=== PATIENT | male | born 1945 | race Caucasian/White ===

== ENCOUNTER 2019-08-10 16:14 | Outpatient (CLI) | payer MEDICARE, SELFPAY | END 2019-08-10 16:15 | disposition home or self-care (01) | LOC: CHSLAB 16:25 | PROVIDERS: PCP Family Medicine; Visit Provider Specialist | DX: C44.321 Squamous cell carcinoma of skin of nose (principal) | CPT/HCPCS: 88305 ==

== ENCOUNTER 2021-08-09 13:08 | Outpatient (CLI) | payer MEDICARE, SELFPAY ==
--- NOTE | 2021-08-09 | ECG_ITS ---
Measurements Intervals [place] Rate: 76 P: 60 [place]: 155 QRS: 10 QRSD: 87 T: 55 QT: 349 QTc: 395 Interpretive Statements SINUS RHYTHM BASELINE ARTIFACT- III NORMAL ECG Electronically Signed On 08-09-2021 14:22:07 CDT by Tremayne Yip D.O.
--- NOTE | ~2021-08-09 | CT_ITS ---
EXAMINATION: CT LE RT wo con DATE: 08/09/2021 13:36 INDICATION: Right knee osteoarthritis presenting with pain and difficulty with weightbearing TECHNIQUE: High resolution computed tomography (CT) of the right lower leg from the hip through the r ight ankle was performed without intravenous contrast. Additional sagittal and coronal reconstruction s were performed. Automated exposure control and iterative reconstruction technique were employed.The dose-length product was 1743.66 mGy-cm. COMPARISON: 06/01/2021 FINDINGS: Bone alignment is normal. No fracture. Tricompartmental osteoarthritis at the right knee with severe joint space narrowing at the medial compartment with early remodeling along the medial aspect of the medial tibial plateau. There is more extensive subarticular eburnation and mild scattered cystlike ch anges along the medial tibial plateau and weightbearing medial femoral condyle. Less severe mild oste oarthritis in the lateral and patellofemoral compartment although severity of joint space narrowing c an be underestimated on nonweightbearing imaging. Large right knee joint effusion. Mild right hip mamadou nt effusion. Prostatomegaly measuring 5.4 x 3.5 cm. No pathologically enlarged right pelvic or inguin al lymphadenopathy. IMPRESSION: 1. Severe medial compartment predominant osteoarthritis at the right knee with large right knee joint effusion. Reviewed, dictated and finalized at location A.
[2021-08-09 14:21] LABS: Estimated Glomerular Filt Rate > 60
[2021-08-09 15:42] LABS: Glucose 99 mg/dL (65-110)
== END 2021-08-09 13:09 | disposition home or self-care (01) ==
PROVIDERS: PCP Family Medicine; Visit Provider Orthopaedic Surgery
DX: Z01.818 Encounter for other preprocedural examination (principal); M17.11 Unilateral primary osteoarthritis, right knee; I10 Essential (primary) hypertension; E78.5 Hyperlipidemia, unspecified
CPT/HCPCS: 36415; 73700; 82040; 82565; 82947; 93005

== ENCOUNTER 2021-08-14 09:31 | Outpatient (CLI) | payer MEDICARE, SELFPAY ==
[2021-08-14 09:59] LABS: Hemoglobin 11.5 g/dL (14.0-18.0)
[2021-08-14 10:09] LABS: Estimated Glomerular Filt Rate > 60; Glucose 117 mg/dL (65-110)
== END 2021-08-14 09:32 | disposition home or self-care (01) ==
PROVIDERS: PCP Family Medicine; Visit Provider Orthopaedic Surgery
DX: Z01.818 Encounter for other preprocedural examination (principal); I10 Essential (primary) hypertension; E78.5 Hyperlipidemia, unspecified; M17.11 Unilateral primary osteoarthritis, right knee
CPT/HCPCS: 36415; 82040; 82565; 82947; 85014; 85018

== ENCOUNTER 2021-11-08 11:57 | Outpatient (CLI) | payer MEDICARE, SELFPAY ==
[2021-11-08 13:24] LABS: Basophils Absolute Auto 0.1 K/mm3 (0.0-0.1); Basophils Percent Auto 0.6 % (0.2-1.2); Eosinophils Absolute Auto 0.2 K/mm3 (0-0.3); Eosinophils Percent Auto 1.8 % (0-4.4); Hematocrit 36.4 % (42.0-52.0); Hemoglobin 11.3 g/dL (14.0-18.0); Immature Granulocyte Absolute 0.03 K/mm3 (0.00-0.031); Immature Granulocyte Percent A 0.4 % (0-0.5); Lymphocytes Percent Auto 8.6 % (18.3-44.2); Mean Corpuscular Hemoglobin 27.6 pg (26-34); Mean Corpuscular Volume 88.8 fl (80-100); Mean Platelet Volume 8.5 fl (7.4-10.4); Monocytes Absolute Auto 0.9 K/mm3 (0.1-0.6); Monocytes Percent Auto 11.5 % (2.6-8.5); Neutrophils Absolute Auto 6.3 K/mm3 (1.3-6.7); Neutrophils Percent Auto 77.1 % (45.5-73.1); Platelet Count Result 364 k/mm3 (150-375); Red Cell Distribution Width 15.3 % (11.5-14.5); White Blood Count 8.2 K/mm3 (4.5-10.0)
[2021-11-08 13:35] LABS: Albumin Level 4.1 g/dL (3.5-5.1); Estimated Glomerular Filt Rate > 60; Glucose 97 mg/dL (65-110)
[2021-11-08 13:37] LABS: Hemoglobin A1C 5.1 % (<5.7)
[2021-11-08 13:40] LABS: Urine Cotinine NEGATIVE
== END 2021-11-08 11:58 | disposition home or self-care (01) ==
LOC: ANHSURGERY 12:02
PROVIDERS: PCP Family Medicine; Visit Provider Orthopaedic Surgery
DX: M17.11 Unilateral primary osteoarthritis, right knee (principal); Z01.818 Encounter for other preprocedural examination
CPT/HCPCS: 80307; 82040; 82565; 82947; 83036; 85025; 87081

== ENCOUNTER 2021-12-04 00:50 | Day surgery (SDC) | payer MEDICARE, SELFPAY ==
[2021-11-08 12:11] VITALS: BMI 22.1
--- NOTE | 2021-11-08 12:39 | PC.NURSE ---
Addendum entered by Yecenia Ray RN 11/08/21 13:04: CELECOXIB OK TO CONTINUE TO TAKE. DO NOT NEED TO HOLD. DO NOT TAKE MORNING OF SURGERY Addendum entered by Yecenia Ray RN 11/08/21 12:47: LAST DOSE CELECOXIB 11/26/21 Original Note: Report to the Outpatient Waiting Room, entrance under the green pavilion located off [address], at time _0630 on date ___12/04/21____. OR Time: . - You and your visitor will be asked to self-screen and do not enter if you have any COVID symptoms. - Only one visitor and NO children visitors are allowed at this time. - The patient visitor is requested to leave or wait in car when not with patient due to restrictions. - A mask is required within the hospital. Patients may have clear liquids (water, carbonated beverages, clear teas, apple juice) until 3 hours prior to surgery with a maximum of 20 ounces. - No food from midnight until time of surgery - Infants may have breast milk until 4 hours before surgery, formula 6 hours prior to surgery. - Children will be allowed to drink immediately following surgery. If applicable, please bring a bottle or sippy cup to assist with drinking. Juice, water, soda, and popsicles are readily available. For infants on formula, please bring formula the day of surgery. Pacifiers are allowed. Take the following medications with a SIP of water the morning of surgery: _LEVOTHYROXINE Medications to discontinue per physician ____CELECOXIB 7 DAYS PRE OP Date to take last dose Please no make-up, nail macedonian, hairspray, perfume, deodorant, or body powder the day of surgery. No jewelry (including any body piercings) or valuables the day of surgery, leave them at home. Please take a shower or bath the night before, or the morning of, surgery with an antibacterial soap. Wear comfortable, loose fitting clothing. Children are encouraged to wear pajamas. - Jewelry must be removed prior to entering the operating room. Rings and piercings that are not removed may be cut off. - The hospital will not accept responsibility for valuables. - Please leave all valuables, including medications, at home the day of surgery. If you are going home after surgery, a licensed cdl truck driver must drive you home. - NO public transportation without another adult. - We recommend that an adult stay with you for 24 hours following discharge. - We also recommend that you do not drive, make important decision, drink alcoholic beverages, or take any drugs that were not prescribed by your health care provider for at least 24 hours after your discharge time. For Pediatric surgeries, we recommend two adults accompany the child home (only one inside the building at this time). Follow any additional instructions given to you from your surgeon. If you or anyone in your household have experienced Covid symptoms in the past week, please notify your surgeon or the nurse liaison at the phone number below for possible testing. VERBALAND WRITTEN instructions given to _PATIENT AND SPOUSE BARB and asked if any additional questions and then verbalized understanding. Patient advised to call surgeon office or pre surgery nurse liaison [phone] if any additional questions.
[2021-11-08 12:55] VITALS: BP 116/85; PULSE 78; RESP 18; TEMP 37; O2SAT 100
--- NOTE | 2021-12-03 14:56 | P.PNAN_ITS ---
Anes - Initial Pre Proc Eval Procedure: Operation Date: 12/04/21 08:30 Proposed Procedures p Right Custom Total Knee Arthroplasty - Ruperto Vogel MD Date/Time: 12/03/21 14:56 Surgeon: Ruperto Vogel MD Pre Op Diagnosis: Prim O.A. Rt Knee Patient Data Age: 76 Gender: M Height: 1.8 m Weight: 72.2 kg Last Vital Signs Temp 37.0 C 11/08/21 12:55 Pulse 78 11/08/21 12:55 Resp 18 11/08/21 12:55 BP 116/85 11/08/21 12:55 Pulse Ox 100 11/08/21 12:55 O2 Del Method Room Air 11/08/21 12:55 Allergies Allergy/AdvReac Type Severity Reaction Status Date / Time venom-honey bee Allergy Unknown Swelling Verified 12/04/21 06:41 Home Medications Medication Instructions Recorded Confirmed Type atorvastatin 20 mg tablet 20 mg PO DAILY 04/20/21 12/04/21 History celecoxib 400 mg capsule 400 mg PO DAILY 04/20/21 12/04/21 History levothyroxine 125 mcg tablet 125 mcg PO DAILY 04/20/21 12/04/21 History lisinopril 10 mg tablet 10 mg PO DAILY 04/20/21 12/04/21 History acetaminophen 500 mg tablet 500 mg PO Q6H PRN Pain 11/08/21 12/04/21 History (Acetaminophen Extra Strength) Patient hx anesthesia problems: none Family hx anesthesia problems: none Results Review: All pre-operative results and documents have been reviewed as part of the pre- operative evaluation. 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 Family History Family History Father Arthritis Social History Social History Smoking status: Never smoker Additional smoking assessment comments: DENIES ANY FORM OF TOBACCO USE Alcohol intake: never Drinks per week: 1 Substance use: never Living arrangements: with family Spiritual care concerns: No Anes - Eval Final PreProcedure Day of Procedure 12/03/21 14:56 Patient weight: normal Heart: regular rate and rhythm Lungs: clear to auscultation and normal air movement Airway: Mallampati scale class II Neurological: alert and oriented Last oral intake: >/= 8 hours ASA classification: II Emergent: no Anesthetic plan: proceed Anesthesia type and monitoring: general LMA and standard monitoring Results Review: All pre-operative results and documents have been reviewed as part of the pre- operative evaluation. Informed Consent: The patient's anesthetic plan and its attendant risks and benefits were discussed with the patient/family/POA. Questions were solicited and answers provided to the satisfaction of the patient/family/POA.
--- NOTE | 2021-12-03 15:00 | WPDANESPNB ---
Anes - Peripheral Nerve Block Date/Time: 12/03/21 15:00 I have discussed with the patient/family/POA the placement of a peripheral nerve block for post-operative pain management, including associated risks, benefits, complications, and side effects. Alternative methods of post-operative analgesia were detailed. Questions were solicited and answers provided to the satisfaction of the patient/family/POA. Time-Out: A pre-procedural Time-Out was completed immediately before starting the procedure and confirmed: Patient Identification, Site, Procedure, Patient Position and the Availability of Requisite Equipment. Clinical Indications: Acute post-operative pain management requested by the operative surgeon. Nerve Block Insertion Note Anes-nerve block: adductor canal right Patient position: supine Skin prep: chlorhexidine Needle: 22 gauge, stimulating, insulated echogenic needle. Needle length: 80 mm Technique: ultrasound Injectate: bupivacaine 0.5% with epi 5 mcg/ml (30cc - no epi) Observations: tolerated well Complications: none Procedure start time:: 827 Procedure end time:: 830
[2021-12-04] VITALS (15 sets, daily range): BP systolic 96–145; BP diastolic 57–88; PULSE 66–91; RESP 12–18; TEMP 36.3–36.7; O2SAT 94–100; BMI 22.2
--- NOTE | ~2021-12-04 | XR_ITS ---
EXAMINATION: XR knee RT 2V DATE: 12/04/2021 10:44 INDICATION: Postoperative evaluation following right total knee arthroplasty. TECHNIQUE: Anteroposterior and lateral views of the right knee were obtained. COMPARISON: 08/09/2021 FINDINGS: Right total knee arthroplasty without patellar resurfacing appears well seated and in near anatomic a lignment. No fractures identified. Expected postoperative subcutaneous and intra-articular gas. IMPRESSION: 1. Right total knee arthroplasty, negative for postoperative purposes. Reviewed, dictated and finalized at location A.
[2021-12-04] MEDS: LACTATED RINGERS 1,000 ML 30 ML IV CONT ×2 (07:00→10:39)
[2021-12-04] MEDS: TRANEXAMIC ACID 1,000MG/ISO100 1,000 MG/100 ML BAG 200 MG IVPB (07:02)
[2021-12-04] MEDS: ACETAMINOPHEN 500 MG TABLET 1000 MG PO (07:03)
--- NOTE | 2021-12-04 07:39 | WPDHPUPDATE1 ---
History and Physical Update Update Date/Time: 12/04/21 07:39 History and Physical has been reviewed, including an updated exam of the patient. There are NO changes in the patient's condition. Risks, benefits, and alternatives have been discussed and questions answered. Patient agrees to proceed with procedure.
[2021-12-04] MEDS: ceFAZolin 2 GM/D5W 50 ML 2 GM/50 ML BAG IVPB ×2 (08:33→16:03)
--- NOTE | 2021-12-04 10:47 | SUR.PHASEI ---
PORTABLE XRAY OF RIGHT KNEE DONE.
--- NOTE | 2021-12-04 12:05 | ADMGEN ---
This patient, Steve Haider, was admitted to Medical Room 244-. Patient/family oriented to hospital policies and general routines including ID bracelet, bed and alarms, visiting hours, pain management, procedures, bathroom and other care routines, personal items, smoking policy, room service/diet, and visiting hours. Information on how to activate the Rapid Response Team has been discussed. Patient/Family are encouraged to report perceived risks to care and to ask questions if they do not understand what they are told or what they should do.
--- NOTE | 2021-12-04 15:20 | W.PM.PROC2 ---
Procedure Note - Detailed Date of Procedure 12/04/21 Pre-op Diagnosis Prim O.A. Rt Knee Post-op Diagnosis Same Procedure Performed Total knee arthroplasty, right knee. Surgeon Ruperto Vogel MD Baseball Inspector And Repairer Lor Chamberlain PA-C Anesthesia General and Regional (Subsartorial block.) Findings Excellent bone quality. No significant releases required. Custom knee implants fit optimally. Description of Procedure Preoperative antibiotics were given. The limb was prepped and draped in the usual sterile fashion with a well-padded tourniquet high on the thigh. The limb was exsanguinated and the tourniquet inflated to 300 mmHg. A longitudinal incision was created just medial to the patella. A trivector approach to the knee was performed. Arthrotomy was taken down through the joint capsule. No significant releases were initially taken. The femur was exposed and the F1 jig was applied. The coring tool was used to remove the cartilage for the F2 jig to sit flush with the bone. The jig was pinned and the distal cut carefully taken. Caliper measurements confirmed appropriate bony resections according to the preoperative templated plan. The F4 cutting jig for the femur was applied, at the standard rotation. The AP and anterior chamfer cuts were taken. The F5 jig was applied and the posterior chamfer cuts were taken. The tibia was prepared using the T1 jig, after removing cartilage for the jig contact points. Proper alignment was checked with the alignment elroy. The tibia was cut using the T1u guide. Gap balancing was performed. Gap measurements were taken and the knee was trialed. Excellent alignment and soft tissue balancing was confirmed. The posterior cruciate ligament was recessed along the proximal tibia. Meniscal remnants were removed. The trial components were assembled. Excellent range of motion and proper soft tissue balancing were confirmed throughout the full range of motion. Patellar tracking was excellent. The knee was copiously irrigated periodically throughout the procedure. The real implants were cemented into position. Excess cement was carefully removed. The wound was closed in layers with interrupted #1 Vicryl suture, 2-0 strata fix suture, 0 strata fix suture, 2-0 strata fix suture. Steri-Strips placed on the skin with the knee flexed. Sterile bulky dressing applied. The patient was brought to the recovery room in stable condition. There were no complications. Physician assistant real estate manager, Lor Pisarski, PA-C, required for surgery; including patient positioning, draping, tissue retraction, maintaining instrument position, cement removal, wound closure, and dressing placement. Implants Conformis Custom total knee arthroplasty. Cemented. Cruciate retaining. 6A insert. Estimated Blood Loss -150.0 Drains No Complications No immediate complications Condition Stable Disposition PACU [facility] Billing Surgery - Charge Forward: Surgery Billing
[2021-12-04] MEDS: ASPIRIN 81 MG ENTERIC TABLET PO (17:17)
[2021-12-04] MEDS: SENNA/DOCUSATE SODIUM TABLET 2 TAB PO (17:17)
[2021-12-04] MEDS: FAMOTIDINE 20 MG TABLET PO (20:49)
[2021-12-05 00:07] VITALS: BP 131/63; PULSE 78; RESP 16; TEMP 36.3; O2SAT 99
[2021-12-05] MEDS: ceFAZolin 2 GM/D5W 50 ML 2 GM/50 ML BAG IVPB ×2 (00:16→08:57)
[2021-12-05 05:16] VITALS: BP 132/72; PULSE 86; RESP 16; TEMP 36.7; O2SAT 98
[2021-12-05] MEDS: LEVOTHYROXINE SODIUM 125 MCG TABLET PO (06:19)
--- NOTE | 2021-12-05 07:43 | WPDANESPN ---
Anes - Prog Note Post-Op Date/Time: 12/05/21 07:43 Cardiovascular status: normal Respiratory status: normal Airway patency: baseline Mental status: baseline Post-Op hydration status: normal Vital Signs: Last Vital Signs Temp 36.7 C 12/05/21 05:16 Pulse 86 12/05/21 05:16 Resp 16 12/05/21 05:16 BP 132/72 12/05/21 05:16 Pulse Ox 98 12/05/21 05:16 O2 Del Method Room Air 12/04/21 20:00 O2 Flow Rate 6 12/04/21 11:15 Pain Score (VAS): 2/10 I/O: Intake & Output 12/04/21 12/04/21 12/05/21 15:59 23:59 07:59 Intake Total 0 540 550 Output Total 400 850 Balance 2089 140 -300 12/04/21 06:55 Blood Type A Positive Antibody Screen Negative Post-procedural complaints: none Patient Feedback: Patient satisfied with anesthetic care.
--- NOTE | 2021-12-05 08:24 | PM.DS ---
DS: Admitting Diagnosis Discharge Date 12/05/21 Admitting Diagnosis OA knee Right DS: Discharge Diagnosis Discharge Diagnosis (1) Status post total right knee replacement: Code(s): Z96.651 - Presence of right artificial knee joint Status: Acute Assessment and Plan: Postop day 1: Right total knee arthroplasty. Patient tolerated procedure well. No complications. Pain manageable with pain medication. No numbness or tingling. We had a lengthy discussion regarding postoperative wound care, limitations, expectations, and exercises. Patient shows good understanding. He has had initial physical therapy and is tolerating it well. DVT prophylaxis: 81 mg baby aspirin b.i.d. for 14 days. Pain medication: Percocet. Celebrex. Prednisone. Patient has followup appointment with Dr. Vogel in 3 weeks. DS: Summary Hospital Course Reason for hospitalization: Total knee arthroplasty Hospital Course: Patient tolerated procedure well. Has had initial PT/OT. No complications. Pain well managed. Status at Discharge Functional status at discharge: uses cane/walker Overall status at discharge: patient is progressing back to baseline Time Spent with Patient Time attestation: Total time spent providing and/or coordinating discharge services: Exam Narrative: Normal weight Male. Resting comfortably in chair. No acute distress. A&O x3. Wearing compression socks bilaterally. Dressing intact with no drainage. Moderate swelling. No ecchymosis. No erythema. No hematoma. Good early range of motion. Calf nontender. Neurologic status intact. No varicosities. Distal pulses palpable. Discharge Plan Discharge Patient Disposition: Home, Self-Care Discharge Instructions: See green instruction sheets Stand Alone Forms: General Discharge Instructions Follow-up/Referrals: Lor Chamberlain PA [Physician Motor Equipment Commanding Officer] - Discharge Medications: New prednisone 5 mg tablet 5 mg PO DAILY 21 Days Qty: 21 0RF aspirin 81 mg tablet,delayed release (DR/EC) 81 mg PO BID 14 Days Qty: 28 0RF oxycodone-acetaminophen 5-325 mg tablet 1 - 2 tablet PO Q4-6H MDD 6 PRN (Reason: pain) Qty: 30 0RF Continued atorvastatin 20 mg tablet 20 mg PO DAILY levothyroxine 125 mcg tablet 125 mcg PO DAILY lisinopril 10 mg tablet 10 mg PO DAILY celecoxib 400 mg capsule 400 mg PO DAILY Label Comments: TAKES 200 MG BID acetaminophen [Acetaminophen Extra Strength] 500 mg Tablet 500 mg PO Q6H PRN (Reason: Pain)
[2021-12-05] MEDS: polyethylene glycoL 3350 17 GM POWD.PACK PO (08:55)
[2021-12-05 08:56] VITALS: RESP 16; O2SAT 98
[2021-12-05] MEDS: ATORVASTATIN 20 MG TABLET PO (08:56)
[2021-12-05] MEDS: predniSONE 5 MG TABLET PO (08:56)
[2021-12-05] MEDS: lisinopriL 10 MG TABLET PO (08:56)
[2021-12-05] MEDS: ASPIRIN 81 MG ENTERIC TABLET PO (08:56)
[2021-12-05] MEDS: CELECOXIB 200 MG CAPSULE 400 MG PO (08:56)
[2021-12-05] MEDS: SENNA/DOCUSATE SODIUM TABLET 2 TAB PO (08:56)
[2021-12-05] MEDS: FAMOTIDINE 20 MG TABLET PO (08:56)
[2021-12-05 10:18] VITALS: BP 136/75; PULSE 73; RESP 18; TEMP 36.4; O2SAT 100
== END 2021-12-05 10:35 | disposition home or self-care (01) ==
LOC: ANHSURGERY 06:22 → ANH2MED 11:58
PROVIDERS: PCP Family Medicine; Visit Provider Orthopaedic Surgery
PROC: (CPT 27447; principal; 2021-12-04 08:30)
DX: M17.11 Unilateral primary osteoarthritis, right knee (principal); G89.18 Other acute postprocedural pain; I10 Essential (primary) hypertension; E78.5 Hyperlipidemia, unspecified; E03.9 Hypothyroidism, unspecified
CPT/HCPCS: 27447; 64447; 36415; 73560; 86850; 86900; 86901; 97110; 97116; 97161; 97165; 97530; 97535; A9270; C1713; C1776; J0131; J0171; J0690; J1100; J1170; J1885; J2250; J2270; J2405; J2704; J2795; J3010; J7120; J7512

== ENCOUNTER 2022-04-23 11:55 | Outpatient (CLI) | payer MEDICARE, SELFPAY | END 2022-04-23 11:56 | disposition home or self-care (01) | LOC: CHSLAB 12:04 | PROVIDERS: PCP Family Medicine; Visit Provider Specialist | DX: C44.519 Basal cell carcinoma of skin of other part of trunk (principal) | CPT/HCPCS: 88305 ==

== ENCOUNTER 2023-07-29 10:44 | Outpatient (CLI) | payer MEDICARE, SELFPAY | END 2023-07-29 10:45 | disposition home or self-care (01) | LOC: CHSLAB 10:50 | PROVIDERS: PCP Family Medicine; Visit Provider Specialist | DX: C44.319 Basal cell carcinoma of skin of other parts of face (principal) | CPT/HCPCS: 88305 ==